=== PATIENT | female | born 1955 | race Caucasian/White ===

== ENCOUNTER 2018-10-19 05:48 | Day surgery (SDC) | payer BC ==
[~2018-10-19] VITALS: Ht 157.5 cm; Wt 59.0 kg
[2018-10-19 06:29] LABS: BASOPHILS 0.2 % (0-2); EOSINOPHILS 1.4 % (0-7); HEMATOCRIT 33.9 % (36.0-48.0); HEMOGLOBIN 10.9 g/dL (12-16); IMMATURE GRANULOCYTES 0.4 % (0-5); LYMPHOCYTES 14.7 % (15-50); MCH 31.2 pg (26.0-34.0); MCHC 32.2 g/dL (31.0-37.0); MCV 97.1 fL (80.0-100.0); MEAN PLATELET VOLUME 8.8 fL (7.4-10.4); MONOCYTES 6.4 % (2-11); NEUTROPHILS 76.9 % (40-80); RBC 3.49 10x6/uL (4.00-5.40); WBC 4.8 10x3/uL (4.8-10.8)
[2018-10-19 06:37] LABS: PLATELET COUNT 151 10x3/uL (130-400)
[2018-10-19] MEDS ORDERED: NORVASC10 MG PO (06:45)
[2018-10-19] MEDS ORDERED: TOPROL XL100 MG PO (06:45)
[2018-10-19] MEDS ORDERED: ZYRTEC10 MG PO (06:46)
[2018-10-19] MEDS ORDERED: BAYER CHEWABLE81 MG PO (06:46)
[2018-10-19] MEDS ORDERED: LASIX80 MG PO (06:47)
[2018-10-19] MEDS ORDERED: MERIBIN5 MG PO (06:47)
[2018-10-19] MEDS ORDERED: GLUCOTROL 5 MG T5 MG PO (06:47)
[2018-10-19] MEDS ORDERED: NEPHRO-VITE RX1 TAB PO (06:49)
[2018-10-19] MEDS ORDERED: VISTARIL25 MG PO (06:49)
[2018-10-19] MEDS ORDERED: RENVELA800 MG PO (06:50)
[2018-10-19 06:53] VITALS: Ht 157.5 cm; Wt 59.0 kg
[2018-10-19 06:55] LABS: ANION GAP 20.2 mmol/L (8-16); CALCIUM 9.1 mg/dL (8.5-10.1); CARBON DIOXIDE 23.1 mmol/L (21.0-32.0); CREATININE - SERUM 6.8 mg/dL (0.6-1.3); POTASSIUM - SERUM 5.3 mmol/L (3.5-5.1)
[2018-10-19 07:16] LABS: INR 1.22 (0.85-1.17); PROTIME 14.9 SECONDS (11.6-15.0)
[2018-10-19 07:17] LABS: APTT 51.1 SECONDS (22.8-39.4)
--- NOTE | 2018-10-19 09:10 | NUR ---
PT IS RESTING QUIETLY IN BED AT THIS TIME. SIDE RAIL IS UP X'S1. DENIES PAIN/SOB AT THIS TIME. IS ABLE TO TOLERATE COFFEE AT THIS TIME. WILL CONTINUE TO MONITOR.
--- NOTE | 2018-10-19 09:21 | NUR ---
DC INSTRUCTIONS GIVEN TO PT/FAMILY. STATE UNDERSTANDING. DC'D IV CATH FULLY INTACT.
--- NOTE | 2018-10-19 09:38 | NUR ---
PT LEFT UNIT VIA AT 1292
--- NOTE | 2018-10-21 12:06 | OP ---
PATIENT NAME: LAKESHIA GARCIA MEDICAL RECORD: [id number] :54 LOCATION:[facility] ADMISSION DATE: SURGEON: CAMI LEARY DO DATE OF OPERATION: 10/19/2018 PROCEDURE: Colonoscopy with polypectomy. INDICATIONS FOR PROCEDURE: Occult blood in stools and positive Cologuard test. SCOPE: Olympus video pediatric colonoscope. MEDICATIONS: Propofol 350 mg IV per anesthesia. WITHDRAWAL TIME: 17 minutes. ESTIMATED BLOOD LOSS: Minimal. COMPLICATIONS: None. FINDINGS: Informed consent was given. The patient was made comfortable with the above medication. After reaching an adequate level of sedation by slow IV push, the patient was placed on her left side. A digital rectal examination was performed and was normal other than the presence of external skin tags from previous hemorrhoids. The endoscope was advanced under direct visualization through the rectum to the cecum, confirmed by the presence of the appendiceal orifice and ileocecal valve. The endoscope was slowly withdrawn and mucosa was carefully examined. The prep quality was good. There were 2 polyps visualized on today's examination. The first was located in the cecum. It was a benign appearing sessile polyp, which measured approximately 5 mm in diameter. It was removed using hot forceps. The second polyp was a rectal polyp, which was benign appearing sessile and measured approximately 1 cm. It was removed using a hot snare. Retroflexion was not performed on today's examination due to the inability to maintain insufflation of the rectum. Limited views of the rectal wall appeared normal. The endoscope was withdrawn from the patient. The patient tolerated the procedure well and there were no complications. IMPRESSION: Two polyps as described above, removed using a combination of hot forceps and hot snare. PLAN AND RECOMMENDATIONS: 1. Discharge home when recovery parameters are met. 2. Continue current diet. 3. Continue current medications. 4. Recall colonoscopy will be dependent on pathology results. I anticipate this being 3-5 years at this time. TRANSINT:[id number] Voice Confirmation ID: [id number] DOCUMENT ID: [id number] OPERATIVE REPORT [id number] LAKESHIA GARCAI CAMI LEARY DO at 1206 CC: [id number] DICTATION DATE: 10/19/18 0839 [employer] ENGINEER: 10/19/18 1034 [facility] 10/19/18 [facility] [address] [place] [address]
== END 2018-10-19 09:35 | disposition home or self-care (01) ==
LOC: D.OPS 05:48
PROVIDERS: Anesthesiology; ATTEND Internal Medicine Gastroenterology
DX: D12.0 Benign neoplasm of cecum (principal); D12.8 Benign neoplasm of rectum; Z01.812 Encounter for preprocedural laboratory examination

== ENCOUNTER 2019-05-11 05:25 | Day surgery (SDC) | payer MEDICARE, BC ==
[2019-05-10 13:31] LABS: HEMATOCRIT 29.2 % (36.0-48.0); HEMOGLOBIN 9.5 g/dL (12-16); LYMPHOCYTES 15.1 % (15-50); MCH 30.6 pg (26.0-34.0); MCHC 32.5 g/dL (31.0-37.0); MCV 94.2 fL (80.0-100.0); MEAN PLATELET VOLUME 7.8 fL (7.4-10.4); NEUTROPHILS 75.8 % (40-80); RDW 18.1 % (11.5-14.5); WBC 3.5 10x3/uL (4.8-10.8)
[2019-05-10 13:37] LABS: ANION GAP 12.9 mmol/L (8-16); CALCIUM 8.4 mg/dL (8.5-10.1); CARBON DIOXIDE 26.1 mmol/L (21.0-32.0); CREATININE - SERUM 3.1 mg/dL (0.6-1.3)
[2019-05-10 13:39] LABS: PLATELET COUNT 190 10x3/uL (130-400)
[2019-05-10 13:42] LABS: INR 1.22 (0.85-1.17); PROTIME 14.9 SECONDS (11.6-15.0)
[~2019-05-11] VITALS: Ht 157.5 cm; Wt 61.2 kg
[~2019-05-11 05:25] MED LIST: BAYER CHEWABLE81 MG PO; FISH OIL 1,0001 CA1 PO; GLUCOTROL 5 MG T5 MG PO; LASIX80 MG PO; MERIBIN5 MG PO; NEPHRO-VITE RX1 TAB PO; NORVASC10 MG PO; RENA-VITE TABL0.8 MG PO; RENVELA800 MG PO; TOPROL XL100 MG PO; VISTARIL25 MG PO; ZYRTEC10 MG PO
[2019-05-11 06:51] VITALS: Ht 157.5 cm; Wt 61.2 kg
--- NOTE | 2019-05-11 12:31 | NUR ---
1200 IV REMOVED, PT ASSISTED TO BATHROOM, O2 SAT LOW 80S AND PT PUT BACK ON O2 PER NC. PT TOOK HER LASIX MEDS THAT SHE MISSED TODAY, SON AT BEDSIDE.
--- NOTE | 2019-05-11 13:00 | NUR ---
1240 DR GARDNER NOTIFIED OF LOW O2 SAT. PT HAS O2 AT HOME USING PORTABLE GENERATED O2 COMPRESSOR. PT MORE AWAKE. SHE TOOK HER 80MG LASIX TAB THAT SHE MISSED TODAY. O2 SAT 88-93 WHEN SITTING UO ON SIDE OF BED. STATED SHE DOESNT FEEL SOB. VOIDED X2 BM X1.
--- NOTE | 2019-05-11 13:02 | NUR ---
1300 PT DISCHARGED ON 02 PER NC 2LITERS
--- NOTE | 2019-05-12 12:38 | OP ---
PATIENT NAME: LAKESHIA GARCIA MEDICAL RECORD: [id number] :54 LOCATION:[facility] ADMISSION DATE: SURGEON: BANDAR SONG MD DATE OF OPERATION: 05/11/2019 REFERRED BY: Dr. Diaz and Dr. Figueroa. PREOPERATIVE DIAGNOSES: Thrombosed left AV graft and end-stage renal disease, on dialysis and dependence on hemodialysis. 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 OPERATION PERFORMED: Open thrombectomy and revision with extensive balloon angioplasty of the body of the graft and the cephalic arch and balloon dilation of the stenosis in the left subclavian vein. SURGEON: Bandar Song MD ANESTHESIA: General with LMA per HOSTLER HELPER. PREOPERATIVE NOTE: This 64-year-old chronically ill white female with end-stage renal disease, has been dialyzing successfully with a left arm brachiocephalic AV fistula. She apparently presented about 2 weeks ago or longer and was a patient in [facility]. She did not have any thrombectomy performed there, but did have a tunneled dialysis catheter inserted on the right. She has been discharged from [facility] and still with some delay in getting her in for a declot. Dr. Figueroa was concerned that she might not be able to get through this very well organized thrombus. So, she is brought to the hospital for the declot. DESCRIPTION OF PROCEDURE: With the patient under general anesthesia per HOSTLER HELPER, she was prepped and draped in sterile manner. The graft was exposed through an incision over the distal arm just above the antecubital space. The graft was dissected from the surrounding structures and encircled with a Silastic loop. It was noted to be an Artegraft. The patient was systemically heparinized with 5000 units of heparin and the graft was opened transversely with a 15 blade scalpel. Thrombus was removed from the arterial side and a brisk arterial inflow was demonstrated. The graft was then clamped. Anita catheters were used to remove thrombus from the body of the graft and it outflow. The stents in these cephalic arch was easily palpable and under fluoroscopy, it could be seen that the stent was actually 2 overlapping stents, which extended proximally into the subclavian vein. After removing as much thrombus as I could with the Anita catheters, I then resorted to manual massage and expression of a large amount of thrombus and organized clot from the graft and from a large cannulation aneurysm. Eventually, I was able to pass a guidewire proximally to the proximal end of the subclavian cephalic arch stent, but it would not pass medially. I was then able using an angled glide catheter and angled Glidewire to pass the wire through the essentially 100% stenosis into the brachiocephalic vein. Contrast injection then was performed with the catheter and I performed a superior vena cavogram. This revealed an indwelling dialysis catheter on the right in the superior vena cava and no other lesions or stenoses of the brachiocephalic or superior vena cava. I then attempted to dilate the severe 95% plus end stent stenosis in the subclavian vein, but I was unable to pass the 9-mm diameter balloon that I have chosen. I subsequently did a wire exchange OPERATIVE REPORT [id number] LAKESHIA GARCIA and passed and used an Amplatz wire over which I was then able to pass the 9-mm balloon and dilate the stricture there in the subclavian vein. The balloon was backed out and dilatations of a long in-stent stenosis and multiple stenoses in the body of the graft was performed. Contrast injection then subsequently through an 8-Lithuanian introducer inserted into the graft at the arteriotomy. These contrast injections revealed persistent severe stenoses of the body of the graft and in the stent and in the subclavian vein. I then dilated everything again with a larger balloon at 12 mm diameter Chaplin balloon and when the contrast injection was repeated, the result was much improved. The arteriotomy was closed with running 5-0 Prolene and when the occluding clamps were released excellent continuous pulsatile flow developed immediately within the graft. The wound was then irrigated with Ancef/gentamicin solution and closed with interrupted inverted 3-0 Vicryl and running intracuticular 4-0 Stratafix and Dermabond glue. It was dressed with Maxorb Ag, Tegaderm, and Cavilon skin prep. The patient was awakened and taken to the recovery room and noted to have an excellent bruit and thrill in the left arm. PLAN: I will plan for the patient to go home today and return to see me in my office in about 2 weeks. She will continue her same medications, diet, and routine dialysis schedule. Obviously, I cannot have any confidence that this fistula or graft rather will continue to function. In general, I do not stent the proximal subclavian vein stenosis like this because it will result in obstruction of the internal jugular vein and prevent access from that vessel in future. I think that this lady would best be served by us going ahead and establishing a new access in her right arm. We can discuss that more after she comes back to see me in the office. Also, because of the likelihood of recurrent thrombosis, I think she should be placed on long-term anticoagulation. TRANSINT:[id number] Voice Confirmation ID: [id number] DOCUMENT ID: [id number] BANDAR SONG MD at 1238 CC: MARÍA FIGUEROA and BRENNAN DIAZ MD [id number] DICTATION DATE: 05/11/19 1107 PCA: 05/11/19 1421 [facility] 05/11/19 [id number] [place] [address]
== END 2019-05-11 13:00 | disposition home or self-care (01) ==
LOC: D.OPS 05:25 → D.PAN 08:00 → D.OPS 11:00
PROVIDERS: Surgery; ATTEND Internal Medicine Nephrology
DX: T82.868A Thrombosis due to vascular prosthetic devices, implants and grafts, initial encounter (principal); Y83.9 Surgical procedure, unspecified as the cause of abnormal reaction of the patient, or of later complication, without mention of misadventure at the time of the procedure